=== PATIENT | male | born 1940 | race African-American/Black ===

== ENCOUNTER 2023-04-14 10:12 | Inpatient (IN) | payer BC ==
[~2023-04-14] VITALS: Ht 177.8 cm; Wt 73.0 kg
[2023-04-14 10:15] VITALS: O2SAT 98
[2023-04-14] MEDS ORDERED: IOHEXOL-350 100 ML BOTTLE ONE (10:41)
[2023-04-14 10:48] LABS: BASOPHILS % 0.5 % (0.0-2.0); EOSINOPHILS % 0.8 % (0.0-5.0); HEMATOCRIT. 37.8 % (42.0-52.0); MEAN CORPUSCULAR HEMOGLOBIN 32.7 pg (28.0-32.0); MEAN CORPUSCULAR VOLUME 95.2 fL (80.0-94.0); MEAN PLATELET VOLUME 8.2 fl (7.4-10.4); MONOCYTES % 3.6 % (2.0-8.0); NEUTROPHILS % 82.1 % (40.0-76.0); PLATELET 217 x1000/uL (130-400); RED BLOOD CELL COUNT 3.97 mill/uL (4.7-6.1); RED CELL DISTRIBUTION WIDTH 12.8 % (11.6-14.6)
[2023-04-14 10:57] LABS: CHLORIDE 105 mEq/L (98-107)
[2023-04-14 10:58] LABS: INR 0.9
[2023-04-14 11:09] LABS: CREATINE KINASE 144 IU/L (39-308); ETHANOL BLOOD < 10 mg/dL (-10)
[2023-04-14 11:38] LABS: CLARITY URINE CLEAR (CLEAR); COLOR URINE YELLOW (YELLOW); KETONES URINE TRACE (NEGATIVE); LEUKOCYTE ESTERASE URINE NEGATIVE (NEGATIVE); NITRITE URINE NEGATIVE (NEGATIVE); OCCULT BLOOD URINE TRACE (NEGATIVE); PROTEIN URINE 3+ (NEGATIVE); SPECIFIC GRAVITY URINE 1.027 (1.005-1.030); UROBILINOGEN URINE 0.2 E.U./dL (0.2-1.0)
[2023-04-14 12:01] LABS: *AMPHETAMINES SCREEN URINE NEGATIVE (NEGATIVE); *BARBITURATES SCREEN URINE NEGATIVE (NEGATIVE); *BENZODIAZEPINES SCREEN URINE NEGATIVE (NEGATIVE); *COCAINE SCREEN URINE NEGATIVE (NEGATIVE); CANNABINOID URINE SCREEN NEGATIVE (NEGATIVE); METHADONE URINE SCREEN NEGATIVE (NEGATIVE); OPIATES URINE SCREEN NEGATIVE (NEGATIVE); PHENCYCLIDINE URINE SCREEN NEGATIVE (NEGATIVE)
[2023-04-14] MEDS ORDERED: HYDRALAZINE 20MG/ML VIAL IV ONE (12:45)
[2023-04-15 08:59] VITALS: BP 164/76; PULSE 48; RESP 18; TEMP 97.8
[2023-04-15 09:01] VITALS: BP 164/76; PULSE 48; RESP 18; TEMP 97.6
[2023-04-15] MEDS ORDERED: AMLO5TAB4 PO (09:16)
[2023-04-15] MEDS ORDERED: GLIP5TAB12 MT (09:16)
[2023-04-15] MEDS ORDERED: NEBI5TAB3 PO (09:16)
[2023-04-15] MEDS ORDERED: DEXTROSE 50% WATER 50ML SYRINGE IV PRN ×2 (09:30→11:15)
[2023-04-15] MEDS ORDERED: CLONIDINE 0.1MG TABLET PO PRN (11:15)
[2023-04-15] MEDS ORDERED: ONDANSETRON HCL 4MG/2ML INJ IV PRN (11:15)
[2023-04-15] MEDS ORDERED: DOCUSATE SODIUM 100MG CAPSULE PO PRN (11:15)
[2023-04-15] MEDS ORDERED: ACETAMINOPHEN 325MG TABLET PO PRN (11:15)
[2023-04-15] MEDS ORDERED: IPRATROPIUM/ALBUTEROL 0.5-3(2.5)MG/3ML NEB HHN PRN (11:15)
[2023-04-15] MEDS: BLOOD SUGAR DIAGNOSTIC STRIP TEST SCH ×3 (11:52→20:01)
[2023-04-15] MEDS: INSULIN LISPRO 100 UNITS/ML SUBCUT SCH ×3 (11:53→20:11)
[2023-04-15] MEDS: SODIUM CHLORIDE 0.9% 1,000 ML IV SCH (11:54)
[2023-04-15] MEDS: AMLODIPINE 5MG TABLET PO SCH (11:55)
[2023-04-15 12:07] VITALS: BP 132/76; PULSE 68; RESP 18; TEMP 97.8
[2023-04-15] MEDS ORDERED: BLOOD SUGAR DIAGNOSTIC STRIP TEST SCH (12:10)
[2023-04-15 16:20] VITALS: BP 160/74; PULSE 54; RESP 18; TEMP 97.6
[2023-04-15 20:00] VITALS: BP 158/77; PULSE 53; RESP 18; TEMP 99.5
[2023-04-15] MEDS ORDERED: ATORVASTATIN CALCIUM 20MG TABLET PO SCH (21:00)
[2023-04-16] VITALS (8 sets, daily range): BP systolic 136–183; BP diastolic 64–89; PULSE 52–77; RESP 15–20; TEMP 97.5–98.9
[2023-04-16] MEDS: BLOOD SUGAR DIAGNOSTIC STRIP TEST SCH ×3 (06:24→17:10)
[2023-04-16] MEDS: SODIUM CHLORIDE 0.9% 1,000 ML IV SCH (06:29)
[2023-04-16] MEDS: INSULIN LISPRO 100 UNITS/ML SUBCUT SCH ×4 (06:29→21:19)
[2023-04-16] MEDS: ASPIRIN 81MG TABLET PO SCH (08:44)
[2023-04-16] MEDS: CLOPIDOGREL 75MG TABLET PO SCH (08:44)
[2023-04-16] MEDS: ACETAMINOPHEN 325MG TABLET PO PRN ×2 (08:45→16:13)
[2023-04-16] MEDS: PANTOPRAZOLE SODIUM 40 MG/VIAL IV SCH (08:45)
[2023-04-16] MEDS: AMLODIPINE 5MG TABLET PO SCH (08:45)
[2023-04-16 13:34] LABS: BASOPHILS % 0.5 % (0.0-2.0); EOSINOPHILS % 0.1 % (0.0-5.0); HEMATOCRIT. 34.7 % (42.0-52.0); HEMOGLOBIN. 12.2 g/dL (14.0-18.0); LYMPHOCYTES % 17.8 % (20.0-50.0); MEAN CORPUSCULAR HEMOGLOBIN 33.1 pg (28.0-32.0); MEAN CORPUSCULAR VOLUME 94.3 fL (80.0-94.0); MEAN PLATELET VOLUME 8.5 fl (7.4-10.4); MONOCYTES % 3.7 % (2.0-8.0); NEUTROPHILS % 77.9 % (40.0-76.0); PLATELET 197 x1000/uL (130-400); RED BLOOD CELL COUNT 3.68 mill/uL (4.7-6.1); RED CELL DISTRIBUTION WIDTH 12.6 % (11.6-14.6)
[2023-04-16] MEDS: HYDRALAZINE HCL 25MG TABLET PO SCH (14:11)
[2023-04-16] MEDS ORDERED: HYDRALAZINE HCL 50MG TABLET PO NR (20:45)
[2023-04-16] MEDS ORDERED: ATORVASTATIN CALCIUM 40MG TABLET PO SCH (21:00)
[2023-04-17] VITALS: BP 143/70; PULSE 57; RESP 18; TEMP 98.1
[2023-04-17] MEDS: SODIUM CHLORIDE 0.9% 1,000 ML IV SCH (03:15)
[2023-04-17 04:00] VITALS: BP 145/74; PULSE 59; RESP 20; TEMP 98
[2023-04-17] MEDS: BLOOD SUGAR DIAGNOSTIC STRIP TEST SCH (06:25)
[2023-04-17] MEDS: INSULIN LISPRO 100 UNITS/ML SUBCUT SCH (06:26)
[2023-04-17 08:00] VITALS: BP 167/77; PULSE 51; RESP 15; TEMP 97.3
[2023-04-17] MEDS: HYDRALAZINE HCL 25MG TABLET PO SCH ×2 (09:00→10:25)
[2023-04-17] MEDS ORDERED: AMLODIPINE 10MG TABLET PO SCH (09:00)
[2023-04-17] MEDS: CLOPIDOGREL 75MG TABLET PO SCH (10:22)
[2023-04-17] MEDS: ASPIRIN 81MG TABLET PO SCH ×2 (10:22→10:24)
[2023-04-17] MEDS: PANTOPRAZOLE SODIUM 40 MG/VIAL IV SCH (10:23)
== END 2023-04-17 12:33 | disposition home or self-care (01) | DRG 71 ==
LOC: ER 10:12 → MICUSO 13:10 → EDBEDREQ 13:17 → EDBEDREQTM 13:17 → 8WST 04-15 09:19
PROVIDERS: ADMIT Internal Medicine; ATTEND Internal Medicine
DX: G93.41 Metabolic encephalopathy (principal); E87.1 Hypo-osmolality and hyponatremia; N17.9 Acute kidney failure, unspecified; R47.01 Aphasia; I16.0 Hypertensive urgency; D64.9 Anemia, unspecified; E11.65 Type 2 diabetes mellitus with hyperglycemia; Z20.822 Contact with and (suspected) exposure to COVID-19; I10 Essential (primary) hypertension; E66.9 Obesity, unspecified; Z68.23 Body mass index [BMI] 23.0-23.9, adult
CPT/HCPCS: 36415; 70496; 70498; 70551; 71045; 80048; 80053; 80061; 80305; 80320; 81003; 82550; 82962; 83036; 83605; 83880; 84443; 84484; 85025; 86850; 86900; 87426; 93005; 93306; 99291; C9113; C9803; J0360; J1815; J7030; Q9967; G0480